=== PATIENT | male | born 1960 | race African-American/Black ===

== ENCOUNTER 2016-11-23 12:52 | Inpatient (IN) | payer OTHER ==
[2016-11-23 15:17] VITALS: BMI 20.9
--- NOTE | 2016-11-23 17:24 | HP ---
COWS - Scale Resting Pulse: 0= [place] 80 or Below Sweatin=Flushed/Facial Moisture Restless Observation: 3= Extraneous Movement Pupil Size: 2= Moderately Dilated Bone or Joint Aches: 2= Severe Diffuse Aches Runny Nose/ Eye Tearin= Runny Nose/Eyes GI Upset > 30mins: 3= Vomiting/Diarrhea Tremor Observation: 2= Slight Tremor Visible Yawning Observation: 2= >3x During Session Anxiety or Irritability: 2=Irritable/Anxious Goose Flesh Skin: 0=Smooth Skin COWS Score: 20 Admission ROS BHS - HPI Chief Complaint: i need help to stop using heroin and cocaine Allergies/Adverse Reactions: Allergies Allergy/AdvReac Type Severity Reaction Status Date / Time No Known Allergies Allergy Verified 11/23/16 17:20 History of Present Illness: this 56 years old male with heroin and cocaine dependence,withdrawal symptom, last detox 09/01 longest sobriety 6 years nicotine dependence Exam Limitations: No Limitations - Ebola screening Have you traveled outside of the country in the last 21 days: No Have you been sick,other than usual withdrawal symptoms: No - Review of Systems Constitutional: Chills, Diaphoresis, Loss of Appetite, Malaise, Night Sweats, Changes in sleep, Weakness, Unintentional Wgt. Loss EENT: reports: Tearing, Nose Congestion Respiratory: reports: No Symptoms reported Cardiac: reports: Palpitations GI: reports: Diarrhea, Nausea, Vomiting, Abdominal cramping : reports: No Symptoms Reported Musculoskeletal: reports: Back Pain, Joint Pain, Muscle Pain, Joint Stiffness Neuro: reports: Headache, Tremors Endocrine: reports: No Symptoms Reported, See HPI, Excessive Sweating, Flushing Hematology: reports: No Symptoms Reported Psychiatric: reports: No Sypmtoms Reported, Judgement Intact, Mood/Affect Appropiate, Orientated x3 Patient History - Patient Medical History Hx Anemia: No Hx Asthma: No Hx Chronic Obstructive Pulmonary Disease (COPD): No Hx Cancer: No Hx Cardiac Disorders: No Hx Congestive Heart Failure: No Hx Hypertension: No Hx Hypercholesterolemia: No Hx Pacemaker: No HX Cerebrovascular Accident: No Hx Seizures: No Hx Dementia: No Hx Diabetes: No Hx Gastrointestinal Disorders: No Hx Liver Disease: No Hx Genitourinary Disorders: No Hx Sexually Transmitted Disorders: No Hx Renal Disease (ESRD): No Hx Thyroid Disease: No Hx Human Immunodeficiency Virus (HIV): No (12/16 negativ e) Hx Hepatitis C: No Hx Depression: No Hx Suicide Attempt: No Hx Bipolar Disorder: No Hx Schizophrenia: No Other Medical History: no suicidal,no homicidal - Patient Surgical History Past Surgical History: No - PPD History Previous Implant?: Yes Documented Results: Negative w/o proof Implanted On Prior [facility] Admission?: No PPD to be Administered?: Yes - Smoking Cessation Smoking history: Current every day smoker Have you smoked in the past 12 months: Yes Aproximately how many cigarettes per day: 6 Cigars Per Day: 0 Hx Chewing Tobacco Use: No Initiated information on smoking cessation: Yes 'Breaking Loose' booklet given: 11/23/16 - Substance & Tx. History Hx Alcohol Use: No Hx Substance Use: Yes Substance Use Type: Cocaine, Heroin Hx Substance Use Treatment: Yes (last 09/01) - Substances Abused Heroin Route: skin pop Frequency: Daily Amount used: 10 bags Age of first use: 32 Date of Last Use: 11/23/16 Cocaine Route: Injection Frequency: 1-2 times per week Amount used: 1 vial Age of first use: 40 Date of Last Use: 11/16/16 Family Disease History - Family Disease History Family History: Denies Admission Physical Exam BHS - Vital Signs Vital Signs: Vital Signs - 24 hr 11/23/16 15:14 Temperature 95.9 F L Pulse Rate 79 Respiratory 18 Rate Blood Pressure 147/82 - Physical General Appearance: Yes: Moderate Distress, Tremorous, Irritable, Sweating, Anxious HEENTM: Yes: Normal ENT Inspection, Normocephalic, Pharynx Normal, Nasal Congestion Respiratory: Yes: Lungs Clear, Normal Breath Sounds, No Respiratory Distress Neck: Yes: Within Normal Limits, Supple, Trachea in good position Breast: Yes: Within Normal Limits Cardiology: Yes: Within Normal Limits, Regular Rhythm, Regular Rate, S1, S2 Abdominal: Yes: Within Normal Limits, Normal Bowel Sounds, Non Tender, Flat, Soft Genitourinary: Yes: Within Normal Limits Back: Yes: Muscle Spasm Musculoskeletal: Yes: Back pain, Joint Stiffness, Muscle Pain Extremities: Yes: Normal Range of Motion, Tremors Neurological: Yes: lamp wirer II-XII NML intact, Fully Oriented, Alert, Motor Strength 5/5 Integumentary: Yes: Dry, Other (multiple ulcers of both forearms ,dry) Lymphatic: Yes: Within Normal Limits - Diagnostic (1) Opioid dependence with withdrawal Current Visit: Yes Status: Acute (2) Cocaine dependence Current Visit: Yes Status: Acute (3) Weight loss Current Visit: Yes Status: Acute (4) Nicotine dependence Current Visit: Yes Status: Acute (5) Ulcer of upper extremity Current Visit: Yes Status: Acute Cleared for Admission [facility] - Detox or Rehab [facility] Level of Care: Medically Managed Detox Regimen/Protocol: Methadone [facility] Breath Alcohol Content Breath Alcohol Content: 0 Urine Drug Screen - Results Drug Screen Negative: No Urine Drug Screen Results: RAMEZ-Cocaine, OPI-Opiates, BZO-Benzodiazepines, MTD- Methadone, OXY-Oxycodone
[2016-11-23] MEDS ORDERED: MENTHOL/PHENOL 1 EACH UD MM PRN (17:35)
[2016-11-23] MEDS ORDERED: LOPERAMIDE HCL 2 MG CAPSULE PO PRN (17:35)
[2016-11-23] MEDS ORDERED: hydrOXYzine PAMOATE 25 MG CAPSULE (FP) PO PRN (17:35)
[2016-11-23] MEDS ORDERED: MAG HYDROX/AL HYDROX/SIMETH 30 ML UNIT-DOSE CUP PO PRN (17:35)
[2016-11-23] MEDS ORDERED: MAGNESIUM HYDROX 2400MG/30ML ORAL SUSPENSION 30 ML CUP PO PRN (17:35)
[2016-11-23] MEDS ORDERED: P-EPHED 60MG/TRIPROLIDI 2.5MG TABLET PO PRN (17:35)
[2016-11-23] MEDS ORDERED: NICOTINE POLACRILEX 2 MG GUM BC PRN (17:35)
[2016-11-23] MEDS ORDERED: diphenhydrAMINE HCL 50 MG CAPSULE PO PRN (17:35)
[2016-11-23] MEDS ORDERED: guaiFENesin/D-METHORPHAN HB 10 ML UNIT-DOSE CUPS PO PRN (17:35)
[2016-11-23] MEDS ORDERED: MAGNESIUM CITRATE 300 ML BOTTLE PO PRN (17:35)
[2016-11-23] MEDS ORDERED: CYCLOBENZAPRINE HCL 10 MG TABLET (FP) PO PRN (17:39)
[2016-11-23] MEDS ORDERED: METHADONE HCL 10 MG TABLET (FOR DETOX USE ONLY) PO ONE ×2 (18:45→23:00)
[2016-11-23] MEDS: diazePAM 5 MG TABLET PO PRN (19:57)
[2016-11-23] MEDS: THIAMINE HCL 100 MG TABLET (FP) PO SCH (22:32)
[2016-11-23] MEDS: cloNIDine HCL 0.1 MG TABLET PO SCH (22:32)
[2016-11-24 04:00] LABS: URINE APPEARANCE CLEAR; URINE BILIRUBIN NEGATIVE (NEGATIVE); URINE BLOOD NEGATIVE (NEGATIVE); URINE COLOR LTYELLOW; URINE GLUCOSE (UA) NEGATIVE (NEGATIVE); URINE KETONE NEGATIVE (NEGATIVE); URINE LEUK ESTERASE NEGATIVE (NEGATIVE); URINE NITRITE NEGATIVE (NEGATIVE); URINE PROTEIN NEGATIVE (NEGATIVE); URINE UROBILINOGEN NEGATIVE E.U./dl (0.2-1.0)
[2016-11-24] MEDS: diazePAM 5 MG TABLET PO PRN (05:50)
[2016-11-24] MEDS ORDERED: METHADONE HCL 10 MG TABLET (FOR DETOX USE ONLY) PO ONE (10:00)
[2016-11-24 10:24] LABS: MCHC 32.7 g/dl (32.0-35.9); MEAN CELL VOLUME 82.6 fl (80-96); PLATELET COUNT 478 K/MM3 (134-434); RDW 14.4 % (11.9-15.9); WHITE BLOOD COUNT 6.6 K/mm3 (4.0-10.0)
[2016-11-24 10:30] LABS: ALBUMIN 3.2 g/dl (3.4-5.0); BILIRUBIN,TOTAL 0.4 mg/dL (0.2-1.0); CALCIUM 9.2 mg/dL (8.5-10.1); CREATININE 1.4 mg/dL (0.7-1.3); TOT PROT 9.8 g/dl (6.4-8.2)
[2016-11-24] MEDS: cloNIDine HCL 0.1 MG TABLET PO SCH ×2 (10:30→22:31)
[2016-11-24] MEDS: PRENATAL VITAMINS W/ FOLIC ACID TABLET (FP) PO SCH (10:30)
[2016-11-24] MEDS ORDERED: BACITRACIN 30 GM TUBE TOPICAL OINTMENT TP SCH (11:15)
[2016-11-24] MEDS ORDERED: BACITRACIN 0.9 GM PACKET TP SCH (11:15)
[2016-11-24 11:55] LABS: SICKLE CELL SCREEN NEGATIVE (NEGATIVE)
--- NOTE | 2016-11-24 11:56 | PN ---
[facility] CIWA - CIWA Score Nausea/Vomitin-No Nausea/No Vomiting Muscle Tremors: 4-Moderate,w/Arms Extend Anxiety: 4-Mod. Anxious/Guarded Agitation: 4-Moderately Restless Paroxysmal Sweats: 1-Minimal Palms Moist Orientation: 0-Oriented Tacttile Disturbances: 3-Moderate Itch/Numb/Burn Auditory Disturbances: 0-None Visual Disturbances: 0-None Headache: 0-None Present CIWA-Ar Total Score: 16 BHS Progress Note (SOAP) Subjective: ANXIETY,SWEATS,IRRITABILITY,SWEATS. SKIN LESION BOTH FOREARMS Objective: 11/24/16 11:55 Vital Signs Temperature 96 F L 11/24/16 09:35 Pulse Rate 74 11/24/16 09:35 Respiratory Rate 18 11/24/16 09:35 Blood Pressure 133/77 11/24/16 09:35 O2 Sat by Pulse Oximetry (%) Laboratory Last Values WBC 6.6 K/mm3 (4.0-10.0) 11/24/16 06:00 RBC 4.93 M/mm3 (4.00-5.60) 11/24/16 06:00 Hgb 13.3 GM/dL (11.7-16.9) 11/24/16 06:00 Hct 40.7 % (35.4-49) 11/24/16 06:00 MCV 82.6 fl (80-96) 11/24/16 06:00 MCHC 32.7 g/dl (32.0-35.9) 11/24/16 06:00 RDW 14.4 % (11.9-15.9) 11/24/16 06:00 Plt Count 478 K/MM3 (134-434) H 11/24/16 06:00 MPV 8.0 fl (7.5-11.1) 11/24/16 06:00 Sickle Cell Screen Negative (NEGATIVE) 11/24/16 06:00 Sodium 128 mmol/L (136-145) L 11/24/16 06:00 Potassium 4.6 mmol/L (3.5-5.1) 11/24/16 06:00 Chloride 93 mmol/L (98-107) L 11/24/16 06:00 Carbon Dioxide 24 mmol/L (21-32) 11/24/16 06:00 Anion Gap 11 (8-16) 11/24/16 06:00 BUN 12 mg/dL (7-18) 11/24/16 06:00 Creatinine 1.4 mg/dL (0.7-1.3) H 11/24/16 06:00 Creat Clearance w eGFR 52.42 (>60) 11/24/16 06:00 Random Glucose 96 mg/dL (74-106) 11/24/16 06:00 Calcium 9.2 mg/dL (8.5-10.1) 11/24/16 06:00 Total Bilirubin 0.4 mg/dL (0.2-1.0) 11/24/16 06:00 AST 35 U/L (15-37) 11/24/16 06:00 ALT 30 U/L (12-78) 11/24/16 06:00 Alkaline Phosphatase 117 U/L (45-117) 11/24/16 06:00 Total Protein 9.8 g/dl (6.4-8.2) H 11/24/16 06:00 Albumin 3.2 g/dl (3.4-5.0) L 11/24/16 06:00 Urine Color Ltyellow 11/23/16 21:30 Urine Appearance Clear 11/23/16 21:30 Urine pH 5.0 (5.0-8.0) 11/23/16 21:30 Ur Specific [place] 1.010 (1.001-1.035) 11/23/16 21:30 Urine Protein Negative (NEGATIVE) 11/23/16 21:30 Urine Glucose (UA) Negative (NEGATIVE) 11/23/16 21:30 Urine Ketones Negative (NEGATIVE) 11/23/16 21:30 Urine Blood Negative (NEGATIVE) 11/23/16 21:30 Urine Nitrite Negative (NEGATIVE) 11/23/16 21:30 Urine Bilirubin Negative (NEGATIVE) 11/23/16 21:30 Urine Urobilinogen Negative E.U./dl (0.2-1.0) 11/23/16 21:30 Ur Leukocyte Esterase Negative (NEGATIVE) 11/23/16 21:30 Assessment: 11/24/16 11:56 WITHDRAWAL SX Plan: CONTINUE DETOX. BACITRACIN OINTMENT DIRECTED
[2016-11-24] MEDS: BACITRACIN 30 GM TUBE TOPICAL OINTMENT TP SCH ×2 (12:29→22:31)
--- NOTE | 2016-11-24 13:04 | EKG ---
Test Reason : Blood Pressure : / mmHG Vent. Rate : 070 BPM Atrial Rate : 070 BPM P-R Int : 154 ms QRS Dur : 070 ms QT Int : 392 ms P-R-T Axes : 082 053 059 degrees QTc Int : 423 ms NORMAL SINUS RHYTHM BIATRIAL ENLARGEMENT ABNORMAL ECG NO PREVIOUS ECGS AVAILABLE Confirmed by BERT SNEED MD ([id number]) on 11/24/2016 1:03:59 PM Referred By: Confirmed By:BERT SNEED MD
[2016-11-24] MEDS: THIAMINE HCL 100 MG TABLET (FP) PO SCH (22:31)
[2016-11-25] MEDS: diazePAM 5 MG TABLET PO PRN (05:27)
[2016-11-25] MEDS: IBUPROFEN 400 MG TABLET (FP) PO PRN ×2 (05:29→15:36)
[2016-11-25] MEDS ORDERED: METHADONE HCL 5 MG TABLET (FOR DETOX USE ONLY) PO ONE (10:00)
[2016-11-25] MEDS: BACITRACIN 30 GM TUBE TOPICAL OINTMENT TP SCH ×2 (10:24→22:07)
[2016-11-25] MEDS: cloNIDine HCL 0.1 MG TABLET PO SCH ×2 (10:25→22:07)
[2016-11-25] MEDS: PRENATAL VITAMINS W/ FOLIC ACID TABLET (FP) PO SCH (10:25)
[2016-11-25] MEDS: ACETAMINOPHEN 325 MG TABLET (FP) PO PRN ×3 (10:27→18:58)
--- NOTE | 2016-11-25 12:38 | PN ---
S COWS - Scale Resting Pulse: 0= [place] 80 or Below Sweatin= Chills/Flushing Restless Observation: 1= Difficult to Sit Still Pupil Size: 2= Moderately Dilated Bone or Joint Aches: 2= Severe Diffuse Aches Runny Nose/ Eye Tearin= Nasal Congestion GI Upset > 30mins: 1= Stomach Cramp Tremor Observation of Outstretched Hands: 1= Tremor [place], Not Seen Yawning Observation: 1= 1-2x During Session Anxiety or Irritability: 2=Irritable/Anxious Goose Flesh Skin: 0=Smooth Skin COWS Score: 12 S Progress Note (SOAP) Subjective: Anxious, Irritable, restlessness, fatigue, interrupted sleep Objective: Vital Signs Temperature 96.9 F L 11/25/16 09:41 Pulse Rate 70 11/25/16 09:41 Respiratory Rate 18 11/25/16 09:41 Blood Pressure 116/67 11/25/16 09:41 O2 Sat by Pulse Oximetry (%) Laboratory Last Values WBC 6.6 K/mm3 (4.0-10.0) 11/24/16 06:00 RBC 4.93 M/mm3 (4.00-5.60) 11/24/16 06:00 Hgb 13.3 GM/dL (11.7-16.9) 11/24/16 06:00 Hct 40.7 % (35.4-49) 11/24/16 06:00 MCV 82.6 fl (80-96) 11/24/16 06:00 MCHC 32.7 g/dl (32.0-35.9) 11/24/16 06:00 RDW 14.4 % (11.9-15.9) 11/24/16 06:00 Plt Count 478 K/MM3 (134-434) H 11/24/16 06:00 MPV 8.0 fl (7.5-11.1) 11/24/16 06:00 Sickle Cell Screen Negative (NEGATIVE) 11/24/16 06:00 Sodium 128 mmol/L (136-145) L 11/24/16 06:00 Potassium 4.6 mmol/L (3.5-5.1) 11/24/16 06:00 Chloride 93 mmol/L (98-107) L 11/24/16 06:00 Carbon Dioxide 24 mmol/L (21-32) 11/24/16 06:00 Anion Gap 11 (8-16) 11/24/16 06:00 BUN 12 mg/dL (7-18) 11/24/16 06:00 Creatinine 1.4 mg/dL (0.7-1.3) H 11/24/16 06:00 Creat Clearance w eGFR 52.42 (>60) 11/24/16 06:00 Random Glucose 96 mg/dL (74-106) 11/24/16 06:00 Calcium 9.2 mg/dL (8.5-10.1) 11/24/16 06:00 Total Bilirubin 0.4 mg/dL (0.2-1.0) 11/24/16 06:00 AST 35 U/L (15-37) 11/24/16 06:00 ALT 30 U/L (12-78) 11/24/16 06:00 Alkaline Phosphatase 117 U/L (45-117) 11/24/16 06:00 Total Protein 9.8 g/dl (6.4-8.2) H 11/24/16 06:00 Albumin 3.2 g/dl (3.4-5.0) L 11/24/16 06:00 Urine Color Ltyellow 11/23/16 21:30 Urine Appearance Clear 11/23/16 21:30 Urine pH 5.0 (5.0-8.0) 11/23/16 21:30 Ur Specific [place] 1.010 (1.001-1.035) 11/23/16 21:30 Urine Protein Negative (NEGATIVE) 11/23/16 21:30 Urine Glucose (UA) Negative (NEGATIVE) 11/23/16 21:30 Urine Ketones Negative (NEGATIVE) 11/23/16 21:30 Urine Blood Negative (NEGATIVE) 11/23/16 21:30 Urine Nitrite Negative (NEGATIVE) 11/23/16 21:30 Urine Bilirubin Negative (NEGATIVE) 11/23/16 21:30 Urine Urobilinogen Negative E.U./dl (0.2-1.0) 11/23/16 21:30 Ur Leukocyte Esterase Negative (NEGATIVE) 11/23/16 21:30 RPR Titer Nonreactive (NONREACTIVE) 11/24/16 06:00 Hepatitis C Antibody >11.0 s/co ratio (0.0-0.9) H 11/23/16 06:00 Labs noted, patient reports no prior hx of Hep C exposure Patient will be informed and be directed for follow up with PCP and outpatient treatment options dw Dr. Harrington Assessment: Withdrawal symptoms Plan: Continue Detox
[2016-11-25] MEDS ORDERED: IBUPROFEN 600 MG TABLET (FP) PO PRN (19:02)
[2016-11-25] MEDS: LIDOCAINE VISCOUS 2% ORAL/TOP 20 ML UNIT-DOSE CUP MM PRN (19:26)
[2016-11-25] MEDS: THIAMINE HCL 100 MG TABLET (FP) PO SCH (22:06)
[2016-11-26] MEDS: diazePAM 5 MG TABLET PO PRN (06:04)
--- NOTE | 2016-11-26 09:17 | PN ---
BHS Progress Note (SOAP) Subjective: Sweating,interrupted sleep,restless. C/O toothache Objective: 11/26/16 09:14 Vital Signs - 8 hr 11/26/16 11/26/16 11/26/16 00:29 03:30 06:43 Temperature 95.0 F L Pulse Rate 71 Respiratory 18 18 18 Rate Blood Pressure 147/88 Mouth : teeth are decayed,missing with carries with swollen gums Assessment: 11/26/16 09:15 Withdrawal sx. Dental abscess Gingivitis Plan: Amoxicillin Continue detox
[2016-11-26] MEDS ORDERED: METHADONE HCL 5 MG TABLET (FOR DETOX USE ONLY) PO ONE (10:00)
[2016-11-26] MEDS: cloNIDine HCL 0.1 MG TABLET PO SCH ×2 (10:26→22:25)
[2016-11-26] MEDS: PRENATAL VITAMINS W/ FOLIC ACID TABLET (FP) PO SCH (10:26)
[2016-11-26] MEDS: AMOXICILLIN 500 MG CAPSULE (FP) PO SCH ×2 (11:17→22:25)
[2016-11-26] MEDS: BACITRACIN 30 GM TUBE TOPICAL OINTMENT TP SCH ×2 (11:53→22:26)
[2016-11-26] MEDS: LIDOCAINE VISCOUS 2% ORAL/TOP 20 ML UNIT-DOSE CUP MM PRN (18:48)
[2016-11-26] MEDS: THIAMINE HCL 100 MG TABLET (FP) PO SCH (22:26)
[2016-11-27] MEDS ORDERED: METHADONE HCL 10 MG TABLET (FOR DETOX USE ONLY) PO ONE (10:00)
[2016-11-27] MEDS: PRENATAL VITAMINS W/ FOLIC ACID TABLET (FP) PO SCH (10:16)
[2016-11-27] MEDS: BACITRACIN 30 GM TUBE TOPICAL OINTMENT TP SCH (10:17)
[2016-11-27] MEDS: cloNIDine HCL 0.1 MG TABLET PO SCH (10:17)
[2016-11-27] MEDS: AMOXICILLIN 500 MG CAPSULE (FP) PO SCH (10:17)
--- NOTE | 2016-11-27 10:39 | PN ---
S Progress Note (SOAP) Subjective: alert,no complaint Objective: 11/27/16 10:37 Vital Signs Temperature 96.2 F L 11/27/16 06:36 Pulse Rate 65 11/27/16 06:36 Respiratory Rate 16 11/27/16 06:36 Blood Pressure 146/81 11/27/16 06:36 O2 Sat by Pulse Oximetry (%) Assessment: 11/27/16 10:37 patient has no withdrawal symptom stable for discharge today Plan: discharge today,follow up with after care program as arrangement
--- NOTE | 2016-11-27 10:40 | DS ---
[facility] Detox Discharge Summary Admission Date: 11/23/16 Discharge Date: 11/27/16 - History Present History: Cocaine Dependence, Opioid Dependence Pertinent Past History: nicotine dependence weight loss ulcer of upper extremity - Physical Exam Results Vital Signs: Vital Signs Temperature 96.2 F L 11/27/16 06:36 Pulse Rate 65 11/27/16 06:36 Respiratory Rate 16 11/27/16 06:36 Blood Pressure 146/81 11/27/16 06:36 O2 Sat by Pulse Oximetry (%) Pertinent Admission Physical Exam Findings: follow up with after care program as arrangement - Treatment Hospital Course: Detox Protocol Followed, Detoxed Safely, Responded well, Discharged Condition Good Patient has Accepted a Rehab Referral to: declined - Medication Discharge Medications: Ambulatory Orders NK [No Known Home Medication] 11/23/16 - Diagnosis (1) Opioid dependence with withdrawal Current Visit: Yes Status: Acute (2) Cocaine dependence Current Visit: Yes Status: Acute (3) Weight loss Current Visit: Yes Status: Acute (4) Nicotine dependence Current Visit: Yes Status: Acute (5) Ulcer of upper extremity Current Visit: Yes Status: Acute - AMA Did Patient Leave Against Medical Advice: No
[2016-11-27 10:54] VITALS: BP 138/83; PULSE 78; TEMP 96
[2016-11-28] MEDS ORDERED: METHADONE HCL 5 MG TABLET (FOR DETOX USE ONLY) PO ONE (06:00)
[2016-11-30 10:12] LABS: HCV LOG 10 6.81 (.)
== END 2016-11-27 11:06 | disposition home or self-care (01) | DRG 773 ==
LOC: YASAS 12:52 → Y3N 18:19
PROVIDERS: ADMIT Internal Medicine; ATTEND Internal Medicine
PROC: HZ2ZZZZ Detoxification Services for Substance Abuse Treatment (ICD-10-PCS; principal; 2016-11-27)
DX: F11.23 Opioid dependence with withdrawal (principal); F14.20 Cocaine dependence, uncomplicated; F17.210 Nicotine dependence, cigarettes, uncomplicated; L98.491 Non-pressure chronic ulcer of skin of other sites limited to breakdown of skin; R63.4 Abnormal weight loss; Z68.21 Body mass index [BMI] 21.0-21.9, adult; Z59.0 Homelessness
CPT/HCPCS: 36415; 80053; 81003; 85027; 85660; 86593; 87522; 93005; 93010